=== PATIENT | female | born 1970 | race Caucasian/White ===

== ENCOUNTER 2019-01-28 00:26 | Emergency (ER) | payer SELFPAY ==
[~2019-01-28] VITALS: Ht 175.3 cm; Wt 85.0 kg
[2019-01-28] MEDS ORDERED: ONDANSETRON 4MG ODT PO STA (00:39)
[2019-01-28 01:19] LABS: BASOPHILS % 0.3 % (0.0-2.0); EOSINOPHILS % 0.4 % (0.0-5.0); HEMATOCRIT. 42.3 % (36.0-48.0); HEMOGLOBIN. 14.5 g/dL (12.0-16.0); LYMPHOCYTES % 32.8 % (20.0-50.0); MEAN CORPUSCULAR HEMOGLOBIN 29.1 pg (28.0-32.0); MEAN CORPUSCULAR VOLUME 84.9 fL (81.0-99.0); MEAN PLATELET VOLUME 7.1 fl (7.4-10.4); MONOCYTES % 5.8 % (2.0-8.0); NEUTROPHILS % 60.7 % (40.0-76.0); PLATELET 260 x1000/uL (130-400); RED BLOOD CELL COUNT 4.98 mill/uL (4.2-5.4); RED CELL DISTRIBUTION WIDTH 13.6 % (11.6-14.6)
[2019-01-28 01:29] LABS: CHLORIDE 104 mEq/L (98-107)
[2019-01-28 02:49] VITALS: BP 126/83
== END 2019-01-28 02:57 | disposition home or self-care (01) ==
LOC: ER 00:26
DX: F12.10 Cannabis abuse, uncomplicated (principal); R11.2 Nausea with vomiting, unspecified; F32.9 Major depressive disorder, single episode, unspecified; H40.9 Unspecified glaucoma; Z88.0 Allergy status to penicillin
CPT/HCPCS: 36415; 80053; 83690; 85025; 99283; Q0162